=== PATIENT | female | born 1975 | race Caucasian/White ===

== ENCOUNTER 2017-11-21 16:43 | Emergency (ER) | payer MEDICAID ==
[2017-11-21 18:31] VITALS: BP 138/84
== END 2017-11-21 18:31 | disposition home or self-care (01) ==
LOC: ED 16:43
DX: B34.9 Viral infection, unspecified (principal); R09.81 Nasal congestion; M79.1 Myalgia
CPT/HCPCS: 87804

== ENCOUNTER 2018-05-11 15:44 | Emergency (ER) | payer MEDICAID ==
[~2018-05-11] VITALS: Ht 170.2 cm; Wt 83.6 kg
[2018-05-11 16:02] VITALS: Ht 170.2 cm; Wt 83.6 kg
[2018-05-11 18:45] VITALS: BP 160/63
== END 2018-05-11 18:45 | disposition home or self-care (01) ==
LOC: ED 15:44
DX: M25.561 Pain in right knee (principal)
CPT/HCPCS: Q0092